=== PATIENT | female | born 1970 | race Caucasian/White ===

== ENCOUNTER 2025-06-29 18:53 | Emergency (ER) | payer MEDICAID ==
[~2025-06-29] VITALS: Ht 152.4 cm; Wt 100.0 kg
[2025-06-29 18:59] VITALS: O2SAT 99
[2025-06-29 20:54] LABS: BASOPHILS % 1.5 % (0.0-2.0); EOSINOPHILS % 3.7 % (0.0-5.0); HEMATOCRIT. 40.6 % (36.0-48.0); HEMOGLOBIN. 13.3 g/dL (12.0-16.0); LYMPHOCYTES % 31.0 % (20.0-50.0); MEAN PLATELET VOLUME 9.7 fl (7.4-10.4); MONOCYTES % 7.6 % (2.0-8.0); NEUTROPHILS % 56.2 % (40.0-76.0); PLATELET 194 x1000/uL (130-400); RED BLOOD CELL COUNT 4.72 mill/uL (4.2-5.4); RED CELL DISTRIBUTION WIDTH 12.8 % (11.6-14.6)
[2025-06-29 21:13] LABS: CREATININE 0.7 mg/dL (0.6-1.0); UREA NITROGEN BLOOD 13 mg/dL (9-23)
[2025-06-29 21:14] LABS: TROPONIN I HIGH SENSITIVITY < 4 ng/L (3.0-34)
[2025-06-29 21:15] LABS: HCG SCREEN NEGATIVE
[2025-06-29 22:21] LABS: T4 FREE 1.29 ng/dL (0.89-1.76)
[2025-06-29] MEDS: IBUPROFEN 600MG TABLET PO ONE (22:40)
[2025-06-30] MEDS: ACETAMINOPHEN 500MG TABLET PO ONE (01:38)
[2025-06-30] MEDS ORDERED: AMLO5TAB6 MT (01:58)
[2025-06-30] MEDS ORDERED: IBUP-1455 MT (01:58)
[2025-06-30 02:28] VITALS: BP 111/87; PULSE 67; RESP 16; TEMP 36.8; O2SAT 100
[2025-06-30] MEDS ORDERED: IOHEXOL-350 100 ML BOTTLE ONE (02:51)
== END 2025-06-30 02:35 | disposition home or self-care (01) ==
LOC: ER 18:53
DX: K80.20 Calculus of gallbladder without cholecystitis without obstruction (principal); R51.9 Headache, unspecified; R07.89 Other chest pain; E11.9 Type 2 diabetes mellitus without complications; H53.2 Diplopia; I10 Essential (primary) hypertension; Z79.899 Other long term (current) drug therapy; Z76.0 Encounter for issue of repeat prescription
CPT/HCPCS: 99285; 71045; 80048; 84703; 84439; 84443; 85025; 85379; 84484; 36415; 93005; 71275; Q9967